=== PATIENT | male | born 1990 | race Caucasian/White ===

== ENCOUNTER 2022-01-06 07:59 | Outpatient (CLI) | payer BC, SELFPAY | END 2022-01-06 08:00 | disposition home or self-care (01) | LOC: NFLDREF 07:59 | PROVIDERS: Visit Provider Obstetrics & Gynecology | DX: Z30.09 Encounter for other general counseling and advice on contraception (principal); Z31.41 Encounter for fertility testing | CPT/HCPCS: 89310; 89398 ==